=== PATIENT | male | born 1965 | race Two or more races ===

== ENCOUNTER 2023-09-29 12:14 | Emergency (ER) | payer OTHER ==
[~2023-09-29] VITALS: Ht 180.3 cm; Wt 81.7 kg
[2023-09-29 13:52] VITALS: BP 139/90; PULSE 95; RESP 16; TEMP 97.7; O2SAT 97
[2023-09-29] MEDS: KETOROLAC TROMETH 60MG/2ML VIAL IM ONE (14:11)
[2023-09-29] MEDS ORDERED: LIDO5CRE14 EX (14:34)
[2023-09-29] MEDS ORDERED: IBUP-1456 PO (14:34)
== END 2023-09-29 14:44 | disposition home or self-care (01) ==
LOC: ER 12:14
DX: S46.091A Other injury of muscle(s) and tendon(s) of the rotator cuff of right shoulder, initial encounter (principal); M24.811 Other specific joint derangements of right shoulder, not elsewhere classified; Z88.5 Allergy status to narcotic agent; X58.XXXA Exposure to other specified factors, initial encounter; Y93.89 Activity, other specified; Y92.89 Other specified places as the place of occurrence of the external cause; Y99.0 Civilian activity done for income or pay
CPT/HCPCS: 73030; 96372; 99283; J1885